=== PATIENT | male | born 1995 | race Caucasian/White ===

== ENCOUNTER 2023-06-17 09:18 | Outpatient (REF) | payer BC, SELFPAY ==
[2023-06-17 19:42] LABS: Hemoglobin A1C 5.3 % (<5.7)
[2023-06-17 19:54] LABS: Calculated LDL 143 mg/dL (<100); Cholesterol 194 mg/dL (<200); HDL Cholesterol 39 mg/dL (40-60); Triglyceride 63 mg/dL (<150)
== END 2023-06-17 09:19 | disposition home or self-care (01) ==
LOC: NCHCN 09:18
PROVIDERS: PCP Physician Assistant; Visit Provider Physician Assistant
DX: Z13.6 Encounter for screening for cardiovascular disorders (principal); Z13.1 Encounter for screening for diabetes mellitus
CPT/HCPCS: 80061; 83036